=== PATIENT | female | born 1995 | race American Indian/Alaskan Native ===

== ENCOUNTER 2019-08-29 11:00 | Emergency (ER) | payer SELFPAY ==
[2019-08-29 11:42] VITALS: BP 114/30
--- NOTE | 2019-08-29 11:48 | Emergency Department Report ---
Chief Complaint: Eye Problems Stated Complaint: PINK EYE Time Seen by Provider: 08/29/19 11:41 - HPI History of Present Illness: This is a 23 y.o. F. that presents to the ER with left sclera injection with clear discharge since last night. No recent eye trauma or suspected trauma such as dust, sand, & etc. No significant photophobia. Denies recent use of contacts, grinding sensation, visual changes, fever, chills, cough, or recent injury. - ROS Review of Systems: HEENT: Redness and clear discharge of left eye. All other systems reviewed with no complaints. - Exam Vital Signs: Vital Signs 08/29/19 11:40 Temperature 97.9 F Pulse Rate 69 Respiratory 18 Rate Blood Pressure 114/30 O2 Sat by Pulse 99 Oximetry Physical Exam: HEENT: left conjunctiva injection, clear discharge, PERRL. Bilateral EOMI, no periorbital swelling or tenderness. All other systems reviewed and within normal limits. MSE screening note: Focused history and physical exam performed. Due to findings the following was ordered: ED Medical Decision Making - Medical Decision Making This is a 23-year-old female that presents with left pink eye with clear mucous discharge since last night. Patient is stable and was examined by me. Vitals normal. Patient's vision is intact. EOMI. Differential also included retained eye foreign body, corneal abrasion, corneal ulcer, glaucoma, allergic conjunctivitis, viral conjunctivitis, open globe but this appears less likely considering history, physical exam, and data gathered. Physical assessment susceptible of bacterial conjunctivitis of left eye. Start erythromycin ophthalmic ointment. Discussed plan with patient and she agreed with plan. Discharge home with primary care and ophthalmology follow up in 48 hours if not resolving. ED Disposition for MSE Clinical Impression: Conjunctivitis Qualifiers: Conjunctivitis type: acute Acute conjunctivitis type: bacterial Laterality: left Qualified Code(s): H10.32 - Unspecified acute conjunctivitis, left eye Disposition: - TO HOME OR SELFCARE Is pt being admited?: No Condition: Stable Instructions: Conjunctivitis (ED) Additional Instructions: Pinkeye is very contagious so please wash hands frequently. Don't share any towels or bedding to prevent spread of infection. Follow up with primary care doctor in 24-72 hours. Use cool compress to each eye to decrease swelling. Avoid rubbing or touching eyes, because rubbing eyes can cause worsening symptoms. Take medication as prescribed. Return to ER if swelling don't improve or difficulty breathing after 2 days of medication. Prescriptions: Erythromycin [Erythromycin Ophth Oint] 10 applic OP QID 5 Days #1 tube Referrals: [facility] [Outside] - 3-5 Days [facility] [Provider Group] - 3-5 Days MISHEL MCKINNEY MD [Staff Physician] - 3-5 Days [facility] [Outside] - 3-5 Days Forms: Work/School Release Form(ED) Time of Disposition: 12:03
== END 2019-08-29 12:28 | disposition home or self-care (01) ==
LOC: ED 11:00
DX: H10.9 Unspecified conjunctivitis (principal)